=== PATIENT | male | born 2005 | race Caucasian/White ===

== ENCOUNTER 2025-04-20 13:19 | Emergency (ER) | payer OTHER ==
[~2025-04-20] VITALS: Ht 175.3 cm; Wt 77.3 kg
[2025-04-20 13:55] VITALS: TEMP 98.5
[2025-04-20 14:03] LABS: COVID AG,FIA SOURCE NASAL SWAB
[2025-04-20 14:26] LABS: SARS-COV2 (COVID) ANTIGEN,FIA Negative (Negative)
[2025-04-20 15:55] VITALS: BP 129/61; PULSE 64; RESP 14; O2SAT 100
== END 2025-04-20 18:32 | disposition admitted as inpatient to this hospital (09) ==
LOC: EMS 13:19
DX: F29 Unspecified psychosis not due to a substance or known physiological condition (principal); Z00.8 Encounter for other general examination; Z20.822 Contact with and (suspected) exposure to COVID-19
CPT/HCPCS: 99285; Z7502